=== PATIENT | male | born 1990 | race Two or more races ===

== ENCOUNTER 2023-05-25 11:39 | Emergency (ER) | payer OTHER ==
[~2023-05-25] VITALS: Ht 182.9 cm; Wt 52.6 kg
[2023-05-25 12:47] LABS: Urine Bacteria NONE SEEN /hpf (None Seen); Urine Blood Negative /uL (Negative); Urine Clarity Clear (Clear); Urine Color Yellow (Yellow); Urine Mucus FEW (None Seen); Urine Protein, UAD 1+ (Negative); Urine Specific Gravity 1.032 (1.001-1.035); Urine Urobilinogen Normal (Negative); Urine WBC 2 /hpf (0 - 3); Urine pH 5.5 (5.0-8.0)
[2023-05-25 13:56] VITALS: BP 146/73; PULSE 75; RESP 18; TEMP 98.1; O2SAT 99
[2023-05-25] MEDS ORDERED: ACETAMINOPHEN 500 MG TAB PO ONE (14:15)
[2023-05-25] MEDS ORDERED: PENICILLIN G BENZ 600000 UNIT/ML 1ML SYRG IM ONE (14:15)
[2023-05-26 07:06] LABS: RPR Non Reactive (Non Reactive)
[2023-05-27 19:06] LABS: Treponema pallidum Ab (FTA-Ab) Non Reactive (Non Reactive)
== END 2023-05-25 14:40 | disposition left against medical advice (07) ==
LOC: ER 11:39
DX: R21 Rash and other nonspecific skin eruption (principal); Z53.21 Procedure and treatment not carried out due to patient leaving prior to being seen by health care provider
CPT/HCPCS: 81001; 86592; 86703; 99281; J0561

== ENCOUNTER 2024-08-09 05:34 | Emergency (ER) | payer OTHER ==
[~2024-08-09] VITALS: Ht 180.3 cm; Wt 95.0 kg
[~2024-08-09 05:34] MED LIST: NABU-72 PO
[2024-08-09 06:29] VITALS: BP 130/76; PULSE 68; RESP 18; TEMP 97.8; O2SAT 98
[2024-08-09] MEDS ORDERED: CYCL-837 PO (07:55)
[2024-08-09] MEDS ORDERED: IBUP-1455 PO (07:55)
== END 2024-08-09 08:03 | disposition home or self-care (01) ==
LOC: ER 05:34
DX: M79.641 Pain in right hand (principal); M79.18 Myalgia, other site; V89.2XXA Person injured in unspecified motor-vehicle accident, traffic, initial encounter; Y93.89 Activity, other specified; Y92.410 Unspecified street and highway as the place of occurrence of the external cause; Y99.8 Other external cause status
CPT/HCPCS: 73502